=== PATIENT | male | born 1980 | race Caucasian/White ===

== ENCOUNTER 2017-02-17 05:40 | Emergency (ER) | payer OTHER, SELFPAY ==
[2017-02-17 06:40] LABS: #Basophils 0.1 thou/uL (0.0-0.2); #Eosinphils 0.1 thou/uL (0.0-0.7); #Lymphocytes 2.5 thou/uL (1.20-3.40); #Monocytes 0.7 thou/uL (0.11-0.59); #Neutrophils 5.4 thou/uL (1.40-6.50); %Basophils 1.5 % (0.0-1.0); %Monocytes 7.8 % (0.0-10.0); %Neutrophils 61.7 % (42.0-75.0); Hemoglobin 14.6 g/dL (14.0-18.0); Mean Corpuscular HGB CONC 33.3 g/dL (32.0-36.0); Mean Corpuscular Hemoglobin 29.8 pg (27.0-31.0); Mean Corpuscular Volume 89.6 fl (80.0-94.0); Mean Platelet Volume 11.2 fL (7.4-10.4); Platelet Count 241 thou/uL (130-400); RBC Distribution Width 11.5 % (11.5-14.5); Red Blood Cell (RBC) Count 4.91 mill/uL (4.70-6.10); White Blood Cell (WBC) Count 8.7 thou/uL (4.8-10.8)
[2017-02-17 06:46] LABS: PTT 35.4 SEC (22.9-36.1); Prothrombin Time 13.1 SEC (12.0-14.7)
[2017-02-17 06:55] LABS: Amphetamine Detected (NotDetected); Barbiturates Screen Not Detected (NotDetected); Benzodiazepine Screen Not Detected (NotDetected); Bilirubin Negative (Negative); Blood, Urine Moderate (Negative); Clarity Clear (Clear); Cocaine Metabolite Screen Not Detected (NotDetected); Glucose, Urine (Dipstick) Negative (Negative); Leukocyte Negative (Negative); Medtox Control Line Valid? VALID (VALID); Methadone Not Detected (NotDetected); Methamphetamine Not Detected (NotDetected); Nitrite Negative (Negative); Opiate Screen Not Detected (NotDetected); Oxycodone Screen Not Detected (NotDetected); Phencyclidine (PCP) Not Detected (NotDetected); Protein, Urine (Dipstick) Negative (Neg-Trace); Specific Gravity, Urine 1.015 (1.005-1.030); THC/Cannabinoid Screen Not Detected (NotDetected); Tricyclic Screen Detected (NotDetected); Urobilinogen 0.2 mg/dL (0.2-1.0)
[2017-02-17 06:56] LABS: Bacteria/HPF Rare-Few HPF (None Seen); Squamous Epithelial 0-3 HPF (0-3); WBC/HPF 0-3 HPF (0-3)
[2017-02-17 06:57] LABS: ALT (SGPT) 37 U/L (8-55); AST (SGOT) 22 U/L (5-34); Acetaminophen Less than 6.0 mcg/mL (10.0-30.0); Albumin 4.5 g/dL (3.5-5.0); Alcohol Less than 10 mg/dL (Less than 10); Alkaline Phosphatase 68 U/L (40-150); Anion Gap 15 mmol/L (10-20); BUN (Urea Nitrogen) 19 mg/dL (8.9-20.6); Bilirubin, Total 0.5 mg/dL (0.2-1.2); Calc. Creatinine Clearance 0 mL/min (70-130); Calcium 9.6 mg/dL (7.8-10.44); Carbon Dioxide 27 mmol/L (22-29); Chloride 102 mmol/L (98-107); Estimated GFR-MDRD 83; Glucose 96 mg/dL (70-105); Potassium 3.9 mmol/L (3.5-5.1); Protein, Total 7.5 g/dL (6.0-8.3); Salicylate Less than 8.0 mg/dL (15.0-30.0); Sodium 140 mmol/L (136-145)
[2017-02-17 07:00] LABS: Hemoglobin A1c 5.2 % (4.0-6.0)
--- NOTE | 2017-02-17 08:16 | CT ---
PRELIMINARY REPORT/[facility]/EMERGENCY AFTER HOURS PROCEDURE: EXAM: CT Chest With Intravenous Contrast CLINICAL HISTORY: 36 years old, male; Pain; Abdominal pain; Localized; Right upper quadrant (ruq); Chest pain; Type no t specified; Patient HX: Ingested glass yesterday TECHNIQUE: Axial computed tomography images of the chest with intravenous contrast. All CT scans at this facili ty use one or more dose reduction techniques, viz.: automated exposure control; ma/Kv adjustment per patient size (including targeted exams where dose is matched to indication; i.e. head); or iterativ e reconstruction technique. Coronal reformatted images were created and reviewed. CONTRAST: 90 mL of ISOVUE 370 administered intravenously. COMPARISON: No relevant prior studies available. FINDINGS: Lungs: The lungs are normal.The visualized thyroid gland is unremarkable. Pleural space: Normal. No pneumothorax. No significant effusion. Heart: The cardiac structures are normal. No significant pericardial effusion. Mediastinum: The trachea is normal. The visualized esophagus is unremarkable. Bones/joints: Normal. No acute fracture. No dislocation. Soft tissues: Normal. Vasculature: The aorta is normal. The pulmonary arteries are not enlarged. Lymph nodes: Normal. No enlarged lymph nodes. IMPRESSION: No acute thoracic pathology. EXAM: CT Abdomen and Pelvis With Intravenous Contrast EXAM DATE/TIME: Exam ordered 02/17/2017 6:32 AM CLINICAL HISTORY: 36 years old, male; Pain; Abdominal pain; Localized; Right upper quadrant (ruq); Chest pain; Type no t specified; Patient HX: Ingested glass yesterday TECHNIQUE: Axial computed tomography images of the abdomen and pelvis with intravenous contrast. All CT scans a t this facility use one or more dose reduction techniques, viz.: automated exposure control; ma/kV a djustment per patient size (including targeted exams where dose is matched to indication; i.e. head) ; or iterative reconstruction technique. Coronal reformatted images were created and reviewed. CONTRAST: 90 mL of ISOVUE 370 administered intravenously. COMPARISON: No relevant prior studies available. FINDINGS: ABDOMEN: Liver: There are no focal liver lesions present. Gallbladder and bile ducts: The gallbladder is normal. There is no evidence of biliary ductal dilati on. No calcified stones. Pancreas: The pancreas is normal. No ductal dilation. Spleen: The spleen is normal. Adrenals: The adrenal glands are normal. Kidneys and ureters: The kidneys are normal. No hydronephrosis. Stomach and bowel: There is a hyperdense focus seen within a loop of small bowel in the LEFT lower q uadrant which may simply represent artifact however foreign body is possible in this patient with hi story of glass ingestion (series 2, image 99 and series 400, image 48). The stomach is normal. The duodenum is unremarkable. The colon is normal. No obstruction. No mucosal thickening. Appendix: A normal appendix is identified. PELVIS: Bladder: The bladder is normal. Reproductive: The prostate gland and seminal vesicles are normal. ABDOMEN and PELVIS: Intraperitoneal space: No free air. No significant fluid collection. Bones/joints: No acute fracture. No dislocation. Soft tissues: Normal. Vasculature: Normal. No abdominal aortic aneurysm. Lymph nodes: Normal. No enlarged lymph nodes. IMPRESSION: 1. There is a hyperdense focus seen within a loop of small bowel in the LEFT lower quadrant which ma y simply represent artifact however foreign body is possible in this patient with history of glass i ngestion. 2. No free air. Thank you for allowing us to participate in the care of your patient. Dictated and Authenticated by: Nicolas Chamorro MD 02/17/2017 7:39 AM Central Time ([place] \T\ [place]) FINAL REPORT CT CHEST AND ABDOMEN AND PELVIS: Multiple axial tomograms are obtained through the chest, abdomen, and pelvis with IV enhancement. HISTORY: Glass ingestion. FINDINGS: CT CHEST: No acute chest abnormality identified. CT ABDOMEN AND PELVIS: No acute intraabdominal abnormality. Hyperdense focus seen in a loop of small bowel in the left low er quadrant was described on the preliminary report. I am in agreement with the preliminary report. POS: [facility]
[2017-02-17] MEDS ORDERED: Iopamidol 370 76% 100 ML VIAL ONE (12:58)
== END 2017-02-17 08:35 ==
LOC: MADERS 05:40
DX: S27.818A Other injury of esophagus (thoracic part), initial encounter (principal); F31.9 Bipolar disorder, unspecified; F90.9 Attention-deficit hyperactivity disorder, unspecified type; F17.210 Nicotine dependence, cigarettes, uncomplicated; Z79.899 Other long term (current) drug therapy; X58.XXXA Exposure to other specified factors, initial encounter
CPT/HCPCS: 71260; 74177; 80053; 80306; 80307; 81001; 83036; 85025; 85610; 85730; 86850; 86900; 86901; 87086

== ENCOUNTER 2017-10-04 13:48 | Emergency (ER) | payer OTHER ==
[~2017-10-04 13:48] MED LIST: Sodium Chloride 0.9% 1,000 ML BAG ONE
[2017-10-04 14:34] LABS: #Basophils 0.1 thou/uL (0.0-0.2); #Eosinphils 0.1 thou/uL (0.0-0.7); #Lymphocytes 1.2 thou/uL (1.20-3.40); #Monocytes 0.5 thou/uL (0.11-0.59); #Neutrophils 6.4 thou/uL (1.40-6.50); %Basophils 1.1 % (0.0-1.0); %Eosinophils 0.9 % (0.0-10.0); %Lymphocytes 14.8 % (21.0-51.0); %Monocytes 5.9 % (0.0-10.0); %Neutrophils 77.4 % (42.0-75.0); Hemoglobin 17.1 g/dL (14.0-18.0); Mean Corpuscular HGB CONC 35.4 g/dL (32.0-36.0); Mean Corpuscular Hemoglobin 31.3 pg (27.0-31.0); Mean Corpuscular Volume 88.6 fl (80.0-94.0); Mean Platelet Volume 11.3 fL (7.4-10.4); Platelet Count 238 thou/uL (130-400); RBC Distribution Width 12.5 % (11.5-14.5); Red Blood Cell (RBC) Count 5.47 mill/uL (4.70-6.10); White Blood Cell (WBC) Count 8.2 thou/uL (4.8-10.8)
[2017-10-04 14:43] LABS: ALT (SGPT) 22 U/L (8-55); AST (SGOT) 21 U/L (5-34); Acetaminophen Less than 6.0 mcg/mL (10.0-30.0); Albumin 4.1 g/dL (3.5-5.0); Alcohol Less than 10 mg/dL (Less than 10); Alkaline Phosphatase 57 U/L (40-150); Anion Gap 16 mmol/L (10-20); BUN (Urea Nitrogen) 12 mg/dL (8.9-20.6); Bilirubin Negative (Negative); Bilirubin, Total 0.5 mg/dL (0.2-1.2); Blood, Urine Negative (Negative); Calc. Creatinine Clearance 0 mL/min (70-130); Calcium 9.3 mg/dL (7.8-10.44); Carbon Dioxide 21 mmol/L (22-29); Chloride 104 mmol/L (98-107); Clarity Clear (Clear); Estimated GFR-MDRD 85; Globulin 2.9 g/dL (2.4-3.5); Glucose 126 mg/dL (70-105); Glucose, Urine (Dipstick) Negative (Negative); Leukocyte Negative (Negative); Nitrite Negative (Negative); Protein, Urine (Dipstick) Negative (Neg-Trace); Salicylate Less than 8.0 mg/dL (15.0-30.0); Sodium 137 mmol/L (136-145); Specific Gravity, Urine 1.007 (1.002-1.036); Urobilinogen 0.2 mg/dL (0.2-1.0)
[2017-10-04 14:44] LABS: Bacteria/HPF Rare-Few HPF (None Seen); RBC/HPF 0-3 HPF (0-3); Squamous Epithelial None Seen HPF (0-3); WBC/HPF None Seen HPF (0-3)
[2017-10-04 14:53] LABS: Amphetamine Detected (NotDetected); Barbiturates Screen Not Detected (NotDetected); Benzodiazepine Screen Not Detected (NotDetected); Cocaine Metabolite Screen Not Detected (NotDetected); Methadone Not Detected (NotDetected); Methamphetamine Detected (NotDetected); Opiate Screen Not Detected (NotDetected); Oxycodone Screen Not Detected (NotDetected); Phencyclidine (PCP) Not Detected (NotDetected); THC/Cannabinoid Screen Not Detected (NotDetected); Tricyclic Screen Not Detected (NotDetected)
[2017-10-04 14:54] LABS: Medtox Control Line Valid? VALID (VALID)
[2017-10-04] MEDS ORDERED: Ondansetron ODT 4 MG TAB ONE (15:19)
[2017-10-04] MEDS ORDERED: Naproxen 500 MG TAB ONE (15:19)
--- NOTE | 2017-10-04 16:05 | RAD ---
RIGHT SHOULDER THREE VIEWS: History: 37-year-old male with history of right shoulder joint pain. FINDINGS: Mild AC joint degenerative changes. No fracture or dislocation or other acute process. IMPRESSION: Mild degenerative changes without fracture or dislocation. POS: [facility]
--- NOTE | 2017-10-04 16:24 | RAD ---
LEFT ELBOW FOUR VIEWS: 10/04/17 HISTORY: 37-year-old male with history of left elbow joint pain. IMPRESSION: No fracture, dislocation, or other significant acute osseous abnormality. POS: [facility]
== END 2017-10-04 15:50 ==
LOC: MADERS 13:48
DX: Z02.89 Encounter for other administrative examinations (principal); F90.9 Attention-deficit hyperactivity disorder, unspecified type
CPT/HCPCS: 80053; 80306; 80307; 81001; 83690; 85025; 87086; 96360; J7050; Q0162

== ENCOUNTER 2021-05-07 13:50 | Emergency (ER) | payer SELFPAY | END 2021-05-07 15:30 | LOC: EEVIPCON 13:50 → MADERS 13:50 | DX: S83.91XA Sprain of unspecified site of right knee, initial encounter (principal); X50.1XXA Overexertion from prolonged static or awkward postures, initial encounter ==